=== PATIENT | female | born 1935 | race Hispanic/Latino ===

== ENCOUNTER 2017-12-21 11:37 | Inpatient (IN) | payer OTHER ==
[~2017-12-21] VITALS: Ht 144.8 cm; Wt 56.3 kg
[~2017-12-21 11:37] MED LIST: ACETAMINOPHEN/COD; DILANTIN 100MG100 MG PO; HYDROCODONE PO; RISPERIDONE PO; Z NORTRIPTYLINE PO; Z.0.LEVOTHYROXINE50 PO; Z.0.LORAZEPAM1 MG PO; Z.0.OMEPRAZOLE40 MG PO; Z.0.SERTRALINE HCL10 PO; Z.2.FERROUS SULFAT32 PO; [UNRECOGNIZED DRUG - OTHER] PO
[2017-12-21] MEDS ORDERED: SODIUM CHLORIDE 0.9% 1000ML 1,000 ML IV STA (11:41)
[2017-12-21 12:46] LABS: BASOPHILS % 0.6 % (0.0-1.0); EOSINOPHILS # (AUTO) 0.2 (0.0-0.4); HEMATOCRIT 41.9 % (34.2-44.1); HEMOGLOBIN 13.8 g/dL (12.0-16.0); LYMPHOCYTES # (AUTO) 1.4 (1.0-3.2); LYMPHOCYTES % 19.8 % (18.0-39.1); MEAN CORPUSCULAR HEMOGLOBIN 31.7 pg (28-32); MEAN CORPUSCULAR HGB CONC 32.9 g/dL (31-35); MEAN CORPUSCULAR VOLUME 96.1 fL (81-99); MONOCYTES # (AUTO) 1.2 (0.2-0.8); MONOCYTES % 16.2 % (4.4-11.3); NEUTROPHILS # (AUTO) 4.4 (2.1-6.9); NEUTROPHILS % 60.1 % (38.7-80.0); PLATELET COUNT 148 x10e3/uL (140-360); RED BLOOD COUNT 4.36 x10e6/uL (3.6-5.1); RED CELL DISTRIBUTION WIDTH 12.6 % (11.7-14.4)
[2017-12-21 13:00] LABS: ALANINE AMINOTRANSFERASE 12 IU/L (0-55); ALBUMIN 3.4 g/dL (3.5-5.0); ALKALINE PHOSPHATASE 92 IU/L (40-150); ANION GAP 16.4 mmol/L (8-16); BLOOD UREA NITROGEN 10 mg/dL (7-26); BUN/CREATININE RATIO 13 (6-25); CALCIUM 8.2 mg/dL (8.4-10.2); CARBON DIOXIDE 24 mmol/L (22-29); CHLORIDE 102 mmol/L (98-107); CREATININE, SERUM 0.79 mg/dL (0.57-1.11); EST GLOMERULAR FILTRATION RATE > 60 ML/MIN (60-); GLUCOSE 93 mg/dL (74-118); POTASSIUM 3.4 mmol/L (3.5-5.1); SODIUM 139 mmol/L (136-145)
[2017-12-21] MEDS ORDERED: ONDANSETRON HCL INJ 2 MG/ML VIAL IV STA (13:46)
[2017-12-21] MEDS ORDERED: MORPHINE SULFATE 2 MG/ML SYR IV STA (13:46)
--- NOTE | 2017-12-21 13:46 | Diagnostic Imaging Report ---
ADDENDUM #1 CT of the pelvis was obtained WITHOUT contrast. TECHNIQUE: Standard departmental protocols were used. Sagittal and coronal reformations were obtained. Dose modulation, iterative reconstruction, and/or weight based adjustment of the mA/kV was utilized to reduce the radiation dose to as low as reasonably achievable. DLP = 1573.45 mGy-cm HISTORY: Pain, status post fall, rule out fracture, left hip/femur COMPARISON: None available FINDINGS: Bones: Diffusely decreased mineralization of the osseous structures limits bone detail. Mildly impacted subcapital left femoral neck fracture. Joints and discs: Multifocal degenerative changes, most notably moderate to severe at L5-S1. Soft tissues: There is no evidence of lymphadenopathy or other soft tissue mass. Moderate colonic fecal burden. IMPRESSION: 1. Acute impacted left femoral neck subcapital fracture. 2. Diffuse osseous demineralization, recommend correlation with nonemergent bone densitometry. Discussed with [employer]INO ATTENDANT Short via phone on December 21, 2017 at 1340. Signed by: Dr. Que Kaminski D.O., M.M.M. on 01/07/2018 4:[address] of the pelvis was obtained WITHOUT contrast. TECHNIQUE: Standard departmental protocols were used. Sagittal and coronal reformations were obtained. HISTORY: Pain, status post fall, rule out fracture, left hip/femur COMPARISON: None available FINDINGS: Bones: Diffusely decreased mineralization of the osseous structures limits bone detail. Mildly impacted subcapital left femoral neck fracture. Joints and discs: Multifocal degenerative changes, most notably moderate to severe at L5-S1. Soft tissues: There is no evidence of lymphadenopathy or other soft tissue mass. Moderate colonic fecal burden. IMPRESSION: 1. Acute impacted left femoral neck subcapital fracture. 2. Diffuse osseous demineralization, recommend correlation with nonemergent bone densitometry. Discussed with CASINO ATTENDANT Short via phone on December 21, 2017 at 1340. Signed by: Dr. Que Kaminski D.O., M.M.M. on 12/21/2017 1:43 PM
--- NOTE | 2017-12-21 13:51 | Diagnostic Imaging Report ---
EXAMINATION: Head CT HISTORY: Status post fall, trauma, head pain COMPARISON: Head CT on 12/17/2008 TECHNIQUE: Multidetector axial images were obtained without contrast from the foramen magnum to the vertex . The images were reconstructed using brain and bone algorithms. Thin section brain images were reformatted into coronal and sagittal planes. Image quality: Motion/streaking artifact limits the evaluation of the skull base and posterior cranial fossa. Dose modulation, iterative reconstruction, and/or weight based adjustment of the mA/kV was utilized to reduce the radiation dose to as low as reasonably achievable. FINDINGS: Parenchyma: 1. 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 Small focus of encephalomalacia in the left occipital lobe. 2. Encephalomalacia in the right parietal lobe with compensatory dilatation of the right lateral ventricle and with surgical clips that appear to be in the parenchyma as well as the dura. No acute abnormality. 3. No mass or hemorrhage. No CT evidence of acute territorial vascular insult. Extra-axial spaces:No abnormal density. No extra-axial fluid collections Brain volume: Normal for age. Ventricles: Stable ventriculomegaly, no hydrocephalus. Arteries: No density suggestive of thrombus. Dural sinuses: No abnormal density. Extra-axial spaces: No abnormal density. Foramen magnum: No mass, Chiari malformation, or basilar invagination. Sella: No obvious mass. Paranasal/mastoid sinuses: Mild mucosal inflammatory thickening of the partially visualized ethmoidal and sphenoid sinuses. Skull/Scalp: Right parietal craniotomy defect is unchanged. Diffuse heterogeneous bone marrow density is again noted. IMPRESSION: 1. No acute post traumatic intracranial abnormalities, particularly no evidence of hemorrhage, streak artifact in the right parietal region limits the evaluation at this level. 2. Unchanged extensive bilateral areas of encephalomalacia when compared to head CT from 12/17/2008. Signed by: Dr. Nina English M.D. on 12/21/2017 1:47 PM
--- NOTE | 2017-12-21 14:05 | Diagnostic Imaging Report ---
LEFT FEMUR - 4 VIEWS HISTORY: Fall, pain COMPARISON: CT of the pelvis December 21, 2017 FINDINGS: Bones: Mildly impacted left femoral neck subcapital fracture. Joints: Unremarkable Soft tissues: Some of the osseous structures are partially obscured by stool and overlying bowel gas. IMPRESSION: Mildly impacted left femoral neck acute subcapital fracture. Signed by: Dr. Que Kaminski D.O., M.M.M. on 12/21/2017 2:01 PM
[2017-12-21 14:17] LABS: CREATINE KINASE MB 1.4 ng/mL (0-5.0)
--- NOTE | 2017-12-21 14:25 | Diagnostic Imaging Report ---
EXAM: XR CHEST 1 VIEW DATE: 12/21/2017 11:41 AM INDICATION: fall/fx COMPARISON: None FINDINGS: Lines and Tubes: None Heart and Mediastinum: The heart is not enlarged. There is left hilar fullness, nodular in appearance. Lungs and Pleura: Ill-defined opacity left lung base. Bones and Soft Tissues: Advanced degenerative changes shoulders. IMPRESSION: 1. Ill-defined opacity left lung base statistically atelectasis. Infectious process not excluded. 2. Left hilar fullness. Follow-up 2 view chest x-ray with deep inspiration after resolution of acute symptoms. If persist, CT chest with contrast be recommended. Signed by: Dr. Darrell Landers MD on 12/21/2017 2:22 PM
[2017-12-21 14:29] LABS: BILIRUBIN,URINE NEGATIVE (NEGATIVE); CLARITY,URINE SL CLOUDY (CLEAR); COLOR,URINE YELLOW (YELLOW); KETONES,URINE NEGATIVE (NEGATIVE); LEUKOCYTE ESTERASE ,URINE NEGATIVE (NEGATIVE); NITRITE,URINE NEGATIVE (NEGATIVE); PROTEIN,URINE DIPSTICK NEGATIVE (NEGATIVE); URINE UROBILINOGEN 0.2 mg/dL (0.2 - 1)
[2017-12-21 14:42] LABS: BACTERIA,URINE FEW /HPF; EPITHELIAL CELLS,URINE FEW /LPF
--- OUTSIDE RECORDS SUMMARY | 2017-12-21 15:05 | XMS REPORT ---
Author Organization Unknown Address [address] [place] [address] Phone [phone] Care Team Providers Care Access Developer Name Role Phone Boo[employer] Unavailable Unavailable Allergies Code Code System Name Reaction Severity Status Onset Iodine Active 07/13/2015 [id number] RxNorm Donepezil Confusion Active Other Active Vomiting Active Medications Name Status Start Date Stop Date amoxicillin 500 mg capsule Completed 12/31/2015 amoxicillin 875 mg-potassium clavulanate 125 mg tablet Completed 12/31/2015 Aspir-Low 81 mg tablet,delayed release TAKE 1 TABLET BY MOUTH EVERY DAY Active Not available aspirin 81 mg chewable tablet Chew 1 tablet every day by oral route for 90 days. Active Not available carbidopa 25 mg-levodopa 100 mg tablet Completed 12/31/2015 carbidopa 25 mg-levodopa 250 mg tablet Completed 04/24/2017 citalopram 20 mg tablet Completed 12/31/2015 donepezil 5 mg tablet Completed 04/24/2017 gabapentin 100 mg capsule Active Not available levothyroxine 50 mcg tablet Active Not available lorazepam 1 mg tablet Take 1 tablet every day by oral route as directed. Completed 12/31/2015 lorazepam 2 mg tablet Take 1 tablet 3 times a day by oral route as needed for 30 days. Active Not available meloxicam 7.5 mg tablet Completed 12/31/2015 paroxetine 20 mg tablet Completed 12/31/2015 phenytoin sodium extended 100 mg capsule Completed 06/26/2016 06/26/2016 risperidone 0.5 mg tablet TAKE 1-2 TABLETS THREE TIMES A DAY Active Not available sertraline 100 mg tablet Completed 12/31/2015 topiramate 25 mg tablet Completed 12/19/2016 trazodone 100 mg tablet Completed 03/06/2016 venlafaxine ER 150 mg capsule,extended release 24 hr take 1 tablet once a day in the AM Active Not available venlafaxine ER 75 mg capsule,extended release 24 hr Take 1 capsule twice a day by oral route. Completed 01/10/2017 04/24/2017 Problems Name Status Onset Date Source Hypothyroidism Active 11/09/2014 History Pure Hypercholesterolemia Active 11/09/2014 History Generalized Anxiety Disorder Active 11/09/2014 History Epileptic Seizure Unknown 11/09/2014 History Hereditary and Idiopathic Peripheral Neuropathy Active 11/09/2014 History History of Malignant Neoplasm of Colon Active 11/09/2014 History Long-term Current Use of Drug Therapy Active 11/09/2014 History Severe Recurrent Major Depression without Psychotic Features Unknown 12/18/2014 History Parkinson's Disease Active 06/18/2015 History Alzheimer's Disease Active 03/06/2016 Severe Recurrent Major Depression with Psychotic Features Active 03/31/2016 Benzodiazepine Dependence Active 12/19/2016 Chronic Post-traumatic Headache Active 12/19/2016 Post-traumatic Epilepsy Active 12/19/2016 Immunization Active 12/19/2016 Procedures Date Name Performed by 09/26/2016 [facility] (Prepmatic Imaging) [address] [place] [address] (Work Place) Notes: 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) and subsequent seizure disorder; Surgery Date: 1987 Cataract Phacotomy and IOL; Surgery Date: 2004 Hemicolectomy 2* to colon Ca; Surgery Date: 2012 Lab Results Date Name Specimen Result Interpretation Description Value Range Status Address 09/26/2016 TSH, Serum or Plasma Normal Tsh 0.79 mIU/L 0.40-4.50 mIU/L Final [facility]: [address] [address], [place] 09/26/2016 T4, Free, Serum Normal T4, Free 1.3 NG/dL 0.8-1.8 NG/dL Final [facility]: [address] [address], [place] 09/26/2016 Lipid Panel, Serum Normal Cholesterol, Total 142 mg/dL <200 mg/dL Final [facility]: [address] Low HDL Cholesterol 49 mg/dL >50 mg/dL Final [facility]: [address] Normal Triglycerides 118 mg/dL <150 mg/dL Final [facility]: [address] Normal LDL-cholesterol 73 mg/dL (calc) Final [facility]: [address] Normal Chol/hdlc Ratio 2.9 (calc) <5.0 (calc) Final [facility]: [address] Normal Non HDL Cholesterol 93 mg/dL (calc) <130 mg/dL (calc) Final [facility] [address] [facility] CMP, Serum or Plasma Normal Glucose 86 mg/dL 65-99 mg/dL Final [facility]: [address] Normal Urea Nitrogen (BUN) 10 mg/dL 7-25 mg/dL Final [facility]: [address] High Creatinine 1.19 mg/dL 0.60-0.88 mg/dL Final [facility]: [address] Low eGFR Non-afr. Romanian 42 mL/min/1.73m2 > or=60 mL/min/1.73m2 Final [facility]: [address] Low eGFR 49 mL/min/1.73m2 > or=60 mL/min/1.73m2 Final [facility]: [address] Normal BUN/creatinine Ratio 8 (calc) 6-22 (calc) Final [facility]: [address] Normal Sodium 141 mmol/L 135-146 mmol/L Final [facility]: [address] Normal Potassium 3.9 mmol/L 3.5-5.3 mmol/L Final [facility]: [address] Normal Chloride 109 mmol/L 98-110 mmol/L Final [facility]: [address] Normal Carbon Dioxide 23 mmol/L 20-31 mmol/L Final [facility]: [address] Normal Calcium 9.0 mg/dL 8.6-10.4 mg/dL Final [facility]: [address] Normal Protein, Total 6.5 g/dL 6.1-8.1 g/dL Final [facility]: [address] Normal Albumin 3.7 g/dL 3.6-5.1 g/dL Final [facility]: [address] Normal Globulin 2.8 g/dL (calc) 1.9-3.7 g/dL (calc) Final [facility]: [address] Normal Albumin/globulin Ratio 1.3 (calc) 1.0-2.5 (calc) Final [facility]: [address] Normal Bilirubin, Total 0.4 mg/dL 0.2-1.2 mg/dL Final [facility]: [address] [address], [place] Normal Alkaline Phosphatase 101 U/L 33-130 U/L Final [facility]: [address] Normal Ast 20 U/L 10-35 U/L Final [facility]: [address] [address], [place] Normal Alt 8 U/L 6-29 U/L Final [facility]: [address] Lipid Panel, Serum Normal Cholesterol, Total 152 mg/dL 125-200 mg/dL Final [facility]: [address], [place] Normal HDL Cholesterol 47 mg/dL > or=46 mg/dL Final [facility]: [address], [place] Normal Triglycerides 96 mg/dL <150 mg/dL Final [facility]: [address], [place] Normal LDL-cholesterol 86 mg/dL (calc) <130 mg/dL (calc) Final [facility]: [address], [place] Normal Chol/hdlc Ratio 3.2 (calc) < or=5.0 (calc) Final [facility]: [address], [place] Normal Non HDL Cholesterol 105 mg/dL (calc) Final [facility]: [address], [place] CMP, Serum or Plasma High Glucose 106 mg/dL 65-99 mg/dL Final [facility]: [address], [place] Normal Urea Nitrogen (BUN) 10 mg/dL 7-25 mg/dL Final [facility]: [address], [place] High Creatinine 0.99 mg/dL 0.60-0.88 mg/dL Final [facility]: [address], [place] Low eGFR Non-afr. Romanian 53 mL/min/1.73m2 > or=60 mL/min/1.73m2 Final [facility]: [address], [place] Normal eGFR 62 mL/min/1.73m2 > or=60 mL/min/1.73m2 Final [facility]: [address], [place] Normal BUN/creatinine Ratio 10 (calc) 6-22 (calc) Final [facility]: [address], [place] Normal Sodium 142 mmol/L 135-146 mmol/L Final [facility]: [address], [place] Normal Potassium 3.6 mmol/L 3.5-5.3 mmol/L Final [facility]: [address] [facility], [place] Normal Chloride 106 mmol/L 98-110 mmol/L Final [facility]: [address], [place] Normal Carbon Dioxide 25 mmol/L 20-31 mmol/L Final [facility]: [address], [place] Normal Calcium 9.3 mg/dL 8.6-10.4 mg/dL Final [facility]: [address], [place] Normal Protein, Total 6.6 g/dL 6.1-8.1 g/dL Final [facility]: [address], [place] Normal Albumin 3.8 g/dL 3.6-5.1 g/dL Final [facility]: [address], [place] Normal Globulin 2.8 g/dL (calc) 1.9-3.7 g/dL (calc) Final [facility]: [address], [place] Normal Albumin/globulin Ratio 1.4 (calc) 1.0-2.5 (calc) Final [facility]: [address] [facility], [place] Normal Bilirubin, Total 0.4 mg/dL 0.2-1.2 mg/dL Final [facility]: [address], [place] Normal Alkaline Phosphatase 101 U/L 33-130 U/L Final [facility]: [address], [place] Normal Ast 15 U/L 10-35 U/L Final [facility]: [address], [place] Normal Alt 6 U/L 6-29 U/L Final [facility]: [address], [place] CBC W/ Auto Diff Normal White Blood Cell Count 5.9 thousand/uL 3.8- 10.8 thousand/uL Final [facility] Lab: [address], [place] Normal Red Blood Cell Count 4.27 million/uL 3.80-5.10 million/uL Final [facility] Lab: [address], [place] Normal Hemoglobin 13.3 g/dL 11.7-15.5 g/dL Final [facility]: [address] [facility], [place] Normal Hematocrit 40.0 % 35.0-45.0 % Final [facility] Lab: [address] [facility], [place] Normal Mcv 93.6 fL 80.0-100.0 fL Final [facility]: [address] [facility], [place] Normal Mch 31.2 pg 27.0-33.0 pg Final [facility]: [address] [facility], [place] Normal Mchc 33.4 g/dL 32.0-36.0 g/dL Final [facility]: [address] [facility], [place] Normal Rdw 14.4 % 11.0-15.0 % Final [facility]: [address] [facility], [place] Normal Platelet Count 164 thousand/uL 140-400 thousand/uL Final [facility] Lab: [address] [facility], [place] Normal Mpv 10.3 fL 7.5-12.5 fL Final [facility] Lab: [address] [facility], [place] Normal Absolute Neutrophils 3540 cells/uL 7664-9821 cells/uL Final [facility] Lab: [address] [facility], [place] Normal Absolute Lymphocytes 1451 cells/uL 850-3900 cells/uL Final [facility] Lab: [address] [facility], [place] Normal Absolute Monocytes 561 cells/uL 200-950 cells/uL Final [facility] Lab: [address], [place] Normal Absolute Eosinophils 277 cells/uL 15-500 cells/uL Final [facility]: [address] [facility], [place] Normal Absolute Basophils 71 cells/uL 0-200 cells/uL Final [facility] Lab: [address], [place] Normal Neutrophils 60.0 % Final [facility] Lab: [address], [place] Normal Lymphocytes 24.6 % Final [facility] Lab: [address], [place] Normal Monocytes 9.5 % Final [facility] Lab: [address], [place] Normal Eosinophils 4.7 % Final [facility] Lab: [address], [place] Normal Basophils 1.2 % Final [facility] Lab: [address], [place] T4, Total, Serum Normal T4 (Thyroxine), Total 9.1 mcg/dL 4.5-12.0 mcg/dL Final [facility] Lab: [address], [place] TSH, Serum or Plasma Normal Tsh 0.78 mIU/L 0.40-4.50 mIU/L Final [facility] Lab: [address], [place] Past Encounters 04/24/2017 Alzheimer's Disease; Generalized Anxiety Disorder; Hereditary and Idiopathic Peripheral Neuropathy; Chronic Post-traumatic Headache; Parkinson's Disease; Post-traumatic Epilepsy; Benzodiazepine Dependence; Moderate Recurrent Major Depression; Restlessness and Agitation Israel Haddad MD: [id number] [facility], [address] [address], Ph. 03/19/2017 Page Adam: 9055 [facility], [address] [address], Ph. 02/13/2017 Page Adam: 9055 [facility], [facility] [address] [address], Ph. 01/10/2017 Alzheimer's Disease; Generalized Anxiety Disorder; Restlessness and Agitation; Parkinson's Disease; Post-traumatic Epilepsy; Benzodiazepine Dependence Israel Haddad MD: [id number] [facility], [facility] [address], [place] [address], Ph. 12/19/2016 Chronic Post-traumatic Headache; Parkinson's Disease; Alzheimer's Disease; Generalized Anxiety Disorder; Post-traumatic Epilepsy; Immunization; Hypothyroidism; Benzodiazepine Dependence Israel Haddad MD: [id number] [facility], [facility] [address] [address], Ph. 11/14/2016 Dennise Reed: 9055 [facility], [facility] [address], [place] [address], Ph. 09/27/2016 Dennise Reed: 9055 [facility], [facility] [address], [place] [address], Ph. 09/26/2016 Generalized Anxiety Disorder; Pure Hypercholesterolemia; Hypothyroidism; Screening for Osteoporosis; Neuropathy; Severe Recurrent Major Depression with Psychotic Features; Refractory Migraine with Aura Mai Juan PA: [id number] [facility], [address] [address], Ph. 08/25/2016 Generalized Anxiety Disorder; Severe Recurrent Major Depression with Psychotic Features; Refractory Migraine with Aura; Hypothyroidism Richard Cornell MD: [id number] [facility], [address] [address], Ph. 06/26/2016 Hypothyroidism; Generalized Anxiety Disorder; Severe Recurrent Major Depression with Psychotic Features; Neuropathy; Refractory Migraine with Aura; Epileptic Seizure; Dry Eyes Mai Juan PA: [id number] [facility], [address] [address], Ph. 04/06/2016 Israel Haddad MD: [id number] [facility], [address] [address], Ph. 03/31/2016 Adult Health Examination; Body Mass Index 20-24 - Normal; Parkinson's Disease; Severe Recurrent Major Depression with Psychotic Features; Neuropathy; Hypothyroidism; Generalized Anxiety Disorder; Refractory Migraine with Aura; Pure Hypercholesterolemia; Advance Directive Discussed with Patient; At Risk for Falls; Alzheimer's Disease; History of Malignant Neoplasm of Colon ALMA Carter: [id number] [facility], [address] [address], Ph. 03/06/2016 Generalized Anxiety Disorder; Refractory Migraine with Aura; Severe Recurrent Major Depression with Psychotic Features; Alzheimer's Disease; Constipation; Immunization ALMA Carter: [id number] [facility], [facility] [address] [address], Ph. 12/31/2015 Hypothyroidism; Generalized Anxiety Disorder; Refractory Migraine with Aura; Severe Recurrent Major Depression with Psychotic Features; Neuropathy Richard Cornell MD: [id number] [facility], [address], [place] [address], Ph. Social History Smoking Status Never Smoker Vaccine List Vaccine Type influenza, high dose seasonal 12/19/20160.5 mL influenza, injectable, quadrivalent 11/09/2014 influenza, injectable, quadrivalent, preservative free 03/06/20160.5 mL pneumococcal conjugate PCV 13 12/19/20160.5 mL pneumococcal polysaccharide PPV23 06/19/2007 Td (adult) 12/05/2008 Plan of Care Patient Instructions It was good to see you in the office today for your Medicare Annual Wellness Visit. You have been provided some information on healthy nutrition, including a diet rich in fruits and vegetables, minimizing simple carbohydrates, salt, and saturated fats. I want to encourage regular cardiovascular exercise such as walking at least 30 minutes daily, 5 times per week. Please remember to schedule any preventive health measures that we talked about today. You have also been provided education on fall prevention and community- based lifestyle interventions to help reduce health risks and promote healthy living in your [employer] folder. Reminders Provider Appointments None recorded. Lab None recorded. Referral None recorded. Procedures None recorded. Surgeries None recorded. Imaging None recorded. Vitals 04/24/2017 04:15PM Est Patient Height Weight BMI Blood Pressure 4 ft 9 in 98.8 lbs 21.4 kg/m2 118/73 mm[Hg] 01/10/2017 02:45PM Est Patient Height Weight BMI Blood Pressure 4 ft 9 in 99 lbs 21.4 kg/m2 149/82 mm[Hg] 12/19/2016 03:30PM Est Patient Height Weight BMI Blood Pressure 4 ft 9 in 99 lbs 21.4 kg/m2 141/88 mm[Hg] 09/26/2016 02:15PM Est Patient Height Weight BMI Blood Pressure 4 ft 9 in 100 lbs 21.6 kg/m2 116/76 mm[Hg] 08/25/2016 11:15AM Est Patient Height Weight BMI Blood Pressure 4 ft 9 in 99 lbs 21.4 kg/m2 124/79 mm[Hg] 06/26/2016 02:45PM Est Patient Height Weight BMI Blood Pressure 4 ft 9 in 99.2 lbs 21.5 kg/m2 114/73 mm[Hg] 03/31/2016 02:00PM SAW OFFBEARER/EST CPX Height Weight BMI Blood Pressure 4 ft 9 in 100.4 lbs 21.7 kg/m2 132/83 mm[Hg] 03/06/2016 11:15AM Est Patient Height Weight BMI Blood Pressure 4 ft 9 in 103 lbs 22.3 kg/m2 133/81 mm[Hg] 12/31/2015 11:30AM Est Patient Height Weight BMI Blood Pressure 4 ft 9 in 108 lbs 23.4 kg/m2 151/80 mm[Hg] 07/13/2015 Height Weight BMI Blood Pressure 4 ft 9 in 116 lbs 25.10 kg/m2 122/68 mm[Hg] 06/18/2015 Height Weight BMI Blood Pressure 4 ft 9 in 116 lbs 25.10 kg/m2 120/68 mm[Hg] 05/07/2015 Height Weight BMI Blood Pressure 4 ft 9 in 116.4 lbs 25.19 kg/m2 112/64 mm[Hg] 03/24/2015 Height Weight BMI Blood Pressure 4 ft 9 in 119.4 lbs 25.84 kg/m2 100/66 mm[Hg] 03/01/2015 Height Weight BMI Blood Pressure 4 ft 9 in 122.4 lbs 26.48 kg/m2 110/74 mm[Hg] 12/18/2014 Height BMI 4 ft 9 in 25.14 kg/m2 12/18/2014 Weight Blood Pressure 116.2 lbs 118/70 mm[Hg] 11/09/2014 Height Weight BMI Blood Pressure 4 ft 9 in 115.2 lbs 24.93 kg/m2 124/72 mm[Hg] 09/10/2014 Height Weight BMI Blood Pressure 4 ft 9 in 113 lbs 24.45 kg/m2 120/76 mm[Hg] 07/15/2014 Height Weight BMI Blood Pressure 4 ft 9 in 105.4 lbs 22.81 kg/m2 116/70 mm[Hg] 05/18/2014 Height Weight BMI Blood Pressure 4 ft 9 in 109.2 lbs 23.63 kg/m2 140/70 mm[Hg] 04/24/2014 Height Weight BMI Blood Pressure 4 ft 9 in 108.6 lbs 23.50 kg/m2 115/70 mm[Hg] 04/08/2014 Height Weight BMI Blood Pressure 4 ft 9 in 108.4 lbs 23.45 kg/m2 100/60 mm[Hg] 03/24/2014 Height Weight BMI Blood Pressure 4 ft 9 in 115.8 lbs 25.06 kg/m2 90/50 mm[Hg] 03/11/2014 Height Weight BMI Blood Pressure 4 ft 9 in 113.2 lbs 24.49 kg/m2 115/70 mm[Hg] 01/16/2014 Height Weight BMI Blood Pressure 4 ft 9 in 112 lbs 24.23 kg/m2 130/70 mm[Hg] 09/19/2013 Height Weight 4 ft 9 in 119.4 lbs 08/12/2013 Height Weight 4 ft 9 in 121.2 lbs 07/10/2013 Height Weight 4 ft 9 in 125 lbs 05/27/2013 Height Weight 4 ft 9 in 129 lbs 04/01/2013 Height Weight 4 ft 9 in 133 lbs 03/03/2013 Height Weight 4 ft 9 in 137.4 lbs 01/16/2013 Height Weight 4 ft 9 in 133.4 lbs 11/21/2012 Height Weight 4 ft 9 in 137.8 lbs 10/31/2012 Height Weight 4 ft 9 in 136.8 lbs 08/12/2012 Height Weight 4 ft 9 in 131.8 lbs 07/05/2012 Height Weight 4 ft 9 in 132 lbs 05/02/2012 Height Weight 4 ft 9 in 124.6 lbs 03/06/2012 Height Weight 4 ft 9 in 127 lbs 12/08/2011 Height Weight 4 ft 9 in 124 lbs 11/10/2011 Height Weight 4 ft 9 in 127.4 lbs 10/11/2011 Height Weight 4 ft 9 in 124.2 lbs 09/15/2011 Height Weight 4 ft 9 in 128.8 lbs 08/23/2011 Height Weight 4 ft 9 in 127 lbs 08/16/2011 Height Weight 4 ft 9 in 128.6 lbs 07/19/2011 Height Weight 4 ft 9 in 133 lbs 06/30/2011 Height Weight 4 ft 9 in 133.4 lbs 05/25/2011 Height Weight 4 ft 9 in 132.6 lbs 05/19/2011 Height Weight 4 ft 9 in 133 lbs 05/16/2011 Height Weight 4 ft 9 in 136.2 lbs 05/10/2011 Height Weight 4 ft 9 in 136 lbs 04/10/2011 Height Weight 4 ft 9 in 134.8 lbs 03/15/2011 Height Weight 4 ft 9 in 57 lbs 02/02/2011 Height Weight 4 ft 9 in 145 lbs 02/01/2011 Height Weight 4 ft 9 in 145 lbs 01/27/2011 Height Weight 4 ft 9 in 145 lbs 01/24/2011 Height Weight 4 ft 9 in 144 lbs 01/16/2011 Weight 144.2 lbs 01/16/2011 Height 4 ft 9 in 12/09/2010 Height Weight 4 ft 9 in 148.2 lbs 11/11/2010 Height Weight 4 ft 9 in 145.6 lbs 10/12/2010 Height Weight 4 ft 9 in 140.6 lbs 09/16/2010 Height Weight 4 ft 9 in 142.6 lbs 08/18/2010 Height Weight 4 ft 9 in 138.8 lbs 07/25/2010 Height Weight 4 ft 9 in 139.4 lbs 06/24/2010 Height Weight 4 ft 9 in 61.1 lbs 05/25/2010 Height Weight 4 ft 9 in 127 lbs 04/01/2010 Height Weight 4 ft 9 in 115.6 lbs 03/23/2010 Height Weight 4 ft 9 in 111 lbs 03/08/2010 Weight 111 lbs 02/17/2010 Height Weight 4 ft 9 in 111.6 lbs 02/02/2010 Height Weight 4 ft 9 in 109.8 lbs 01/21/2010 Height Weight 4 ft 9 in 110.4 lbs 12/28/2009 Weight 108.2 lbs 12/14/2009 Height Weight 4 ft 9 in 114.6 lbs 12/01/2009 Height Weight 4 ft 9 in 111 lbs 11/10/2009 Weight 108.8 lbs 10/20/2009 Height Weight 4 ft 9 in 110.4 lbs 09/24/2009 Height Weight 4 ft 9 in 106.2 lbs 09/07/2009 Weight 106.2 lbs 08/18/2009 Height Weight 4 ft 9 in 108.4 lbs 06/17/2009 Weight 109 lbs 05/17/2009 Weight 112.2 lbs 02/15/2009 Weight 121 lbs 01/13/2009 Weight 124 lbs 11/10/2008 Weight 124 lbs 09/21/2008 Weight 130 lbs 08/25/2008 Weight 136 lbs 08/17/2008 Weight 141 lbs 08/07/2008 Weight 145 lbs 07/28/2008 Height Weight 4 ft 9 in 145 lbs 07/02/2008 Weight 146 lbs 06/15/2008 Height Weight 4 ft 9 in 150 lbs 06/05/2008 Height Weight 4 ft 9 in 155 lbs 05/28/2008 Weight 153 lbs 05/19/2008 Height Weight 4 ft 9 in 151 lbs 05/05/2008 Height Weight 4 ft 10 in 153 lbs 02/28/2008 Weight 149.5 lbs 12/05/2007 Weight 151.9 lbs 10/04/2007 Weight 154.7 lbs 09/16/2007 Weight 156.8 lbs 09/02/2007 Height Weight 4 ft 10 in 156.4 lbs 07/10/2007 Weight 155 lbs 06/19/2007 Weight 157 lbs 03/18/2007 Height Weight 4 ft 9 in 15.9 lbs
--- OUTSIDE RECORDS SUMMARY | 2017-12-21 15:05 | XMS REPORT ---
[facility] Address Unknown Phone Unavailable Care Team Providers Care Mill Operator Head Name Role Phone DWIGHTAga TAYLOR Unavailable Unavailable Problems This patient has no known problems. Allergies, Adverse Reactions, Alerts This patient has no known allergies or adverse reactions. Medications This patient has no known medications. Results Test Description Test Time Test Comments Text Results Atomic Results Result Comments CHEST SINGLE (PORTABLE) 2017-12-21 14:20:00 [place] [address] Patient Name: ZENY COREA I MR #: [id number] : 1935 Age/Sex: 82/F Req #: [id number] Adm Physician: Ordered by: DEEJAY CARTER HEATER TENDER Report #: [id number] Location: ER Room/Bed: Procedure: [id number] DX/CHEST SINGLE (PORTABLE) Exam Date: 12/21/17 Exam Time: 1340 REPORT STATUS: Signed EXAM: XR CHEST 1 VIEW DATE: 12/21/2017 11:41 AM INDICATION: fall/fx COMPARISON: None FINDINGS: Lines and Tubes: None Heart and Mediastinum: The heart is not enlarged. There is left hilar fullness, nodular in appearance. Lungs and Pleura: Ill-defined opacity left lung base. Bones and Soft Tissues: Advanced degenerative changes shoulders. IMPRESSION: 1. Ill-defined opacity left lung base statistically atelectasis. Infectious process not excluded. 2. Left hilar fullness. Follow-up 2 view chest x-ray with deep inspiration after resolution of acute symptoms. If persist, CT chest with contrast be recommended. Signed by: Dr. Darrell Landers MD on 12/21/2017 2:22 PM Dictated By: DARRELL LANDERS MD 21 Transcribed By: MIYA on 12/21/171421 COPY TO: DEEJAY CARTER HEATER TENDER FEMUR 2 VIEWS MINIMUM LEFT 2017-12-21 14:00:00 [place] [address] Patient Name: ZENY COREA I MR #: [id number] : 1935 Age/Sex: 82/F Req #: [id number] Adm Physician: Ordered by: DEEJAY CARTER HEATER TENDER Report #: [id number] Location: ER Room/Bed: Procedure: [id number] DX/FEMUR 2 VIEWS MINIMUM LEFT Exam Date: Exam Time: REPORT STATUS: Signed LEFT FEMUR - 4 VIEWS HISTORY: Fall, pain COM PARISON: CT of the pelvis December 21, 2017 FINDINGS: Bones: Mildly impacted left femoral neck subcapital fracture. Joints: Unremarkable Soft tissues: Some of the osseous structures are partially obscured by stool and overlying bowel gas. IMPRESSION: Mildly impacted left femoral neck acute subcapital fracture. Signed by: Dr. Que Kaminski D.O., M.M.M. on 12/21/2017 2:01 PM Dictated By: QUE KAMINSKI DO 00 Transcribed By: MIYA on 12/21/171400 COPY TO: DEEJAY CARTER HEATER TENDER CT BRAIN WO 2017-12-21 13:36:00 [facility] [address] [place] [address] Patient Name: ZENY COREA I MR #: [id number] : 1935 Age/Sex: 82/F Req #: [id number] Adm Physician: Ordered by: DEEJAY CARTER HEATER TENDER Report #: [id number] Location: ER Room/Bed: Procedure: [id number] CT/CT BRAIN WO Exam Date: 12/21/17 Exam Time: 1300 REPORT STATUS: Signed EXAMINATION: Head CT HISTORY: Status post fall, trauma, head pain COMPARISON: Head CT on 12/17/2008 TECHNIQUE: Multidetector axial images were obtained without contrast from the foramen magnum to the vertex . The images were reconstructed using brain and bone algorithms. Thin section brain images were reformatted into coronal and sagittal planes. Image quality: Motion/streaking artifact limits the evaluation of the skull base and posterior cranial fossa. Dose modulation, iterative reconstruction, and/or weight based adjustment of the mA/kV was utilized to reduce the radiation dose to as low as reasonably achievable. FINDINGS: Parenchyma: 1. 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 Small focus of encephalomalacia in the left occipital lobe. 2. Encephalomalacia in the right parietal lobe with compensatory dilatation of the right lateral ventricle and with surgical clips that appear to be in the parenchyma as well as the dura. No acute abnormality. 3. No mass or hemorrhage. No CT evidence of acute territorial vascular insult. Extra-axial spaces:No abnormal density. No extra-axial fluid collections Brain volume: Normal for age. Ventricles: Stable ventriculomegaly, no hydrocephalus. Arteries: No density suggestive of thrombus. Dural sinuses: No abnormal density. Extra-axial spaces: No abnormal density. Foramen magnum: No mass, Chiari malformation, or basilar invagination. Sella: No obvious mass. Paranasal/mastoid sinuses: Mild mucosal inflammatory thickening of the partially visualized ethmoidal and sphenoid sinuses. Skull/Scalp: Right parietal craniotomy defect is unchanged. Diffuse heterogene ous bone marrow density is again noted. IMPRESSION: 1. No acute post traumatic intracranial abnormalities, particularly no evidence of hemorrhage, streak artifact in the right parietal region limits the evaluation at this level. 2. Unchanged extensive bilateral areas of encephalomalacia when compared to head CT from 12/17/2008. Signed by: Dr. Brandon English M.D. on 12/21/2017 1:47 PM Dictated By: BRANDON ENGLISH MD 1347 Transcribed By: MIYA on 12/21/17 1347 COPY TO: DEEJAY CARTER HEATER TENDER CT PELVIS WO 2017-12-21 13:35:00 [place] [address] Patient Name: ZENY COREA I MR #: [id number] : 1935 Age/Sex: 82/F Req #: [id number] Adm Physician: Ordered by: DEEJAY CARTER HEATER TENDER Report #: [id number] Location: ER Room/Bed: Procedure: [id number] CT/CT PELVIS WO Exam Date: 12/21/17 Exam Time: 1300 REPORT STATUS: Signed CT of the pelvis was obtained WITHOUT contrast. TECHNIQUE : Standard departmental protocols were used. Sagittal and coronal reformations were obtained. HISTORY: Pain, status post fall, rule out fracture, left hip/femur COMPARISON: None available FINDINGS: Bones: Diffusely decreased mineralization of the osseous structures limits bone detail. Mildly impacted subcapital left femoral neck fracture. Joints and discs: Multifocal degenerative changes, most notably moderate to severe at L5- S1. Soft tissues: There is no evidence of lymphadenopathy or other soft tissue mass. Moderate colonic fecal burden. IMPRESSION: 1. Acute impacted left femoral neck subcapital fracture. 2. Diffuse osseous demineralization, recommend correlation with nonemergent bone densitometry. Discussed with ROSY Carter via phone on December 21, 2017 at 1340. Signed by: Dr. Que Kaminski D.O., M.M.M. on 12/21/2017 1:43 PM Dictated By: QUE KAMINSKI DO 6245 Tr anscribed By: MIYA on 12/21/17 1346 COPY TO: DEEJAY CARTER NP
[2017-12-21 15:41] LABS: INR 0.98; PROTHROMBIN TIME 13.9 seconds (11.9-14.5)
[2017-12-21 15:42] LABS: PARTIAL THROMBOPLASTIN TIME 31.3 seconds (23.8-35.5)
[2017-12-21 18:05] VITALS: BP 146/79
[2017-12-21 18:56] VITALS: BP 146/79
[2017-12-21] MEDS ORDERED: ASPIRIN81 MG PO (19:43)
[2017-12-21] MEDS ORDERED: RASAGILINE PO (19:43)
[2017-12-21] MEDS ORDERED: BENZONATATE100 MG PO (19:43)
[2017-12-21] MEDS ORDERED: AZITHROMYC200 MG/5 M PO (19:43)
[2017-12-21] MEDS ORDERED: GABAPENTIN100 MG PO (19:43)
[2017-12-21] MEDS ORDERED: VITAMIN D1000 UNI1 PO (19:43)
[2017-12-21] MEDS ORDERED: [UNRECOGNIZED DRUG - OTHER] PO (19:43)
[2017-12-21] MEDS: ONDANSETRON HCL INJ 2 MG/ML VIAL IV PRN (19:48)
[2017-12-21] MEDS: MORPHINE SULFATE 2 MG/ML SYR IV PRN (19:52)
[2017-12-21 20:00] VITALS: BP 148/77
[2017-12-21 20:30] VITALS: BP 148/77
[2017-12-22] VITALS (8 sets, daily range): BP systolic 113–141; BP diastolic 60–73
[2017-12-22] MEDS: ONDANSETRON HCL INJ 2 MG/ML VIAL IV PRN ×2 (06:05→10:10)
[2017-12-22] MEDS: MORPHINE SULFATE 2 MG/ML SYR IV PRN ×2 (06:08→10:10)
[2017-12-22] MEDS ORDERED: AZITHROMYCIN 500MG/NS 250 ML 250 ML IV ONE (11:15)
[2017-12-22] MEDS ORDERED: CEFTRIAXONE SOD 1 GM/NS 50 ML 50 ML IV SCH (11:15)
[2017-12-22] MEDS ORDERED: MAGNESIUM HYDROXIDE 30 ML UDC PO PRN (11:15)
[2017-12-22] MEDS ORDERED: BENZONATATE 100 MG CAP PO PRN (11:15)
--- NOTE | 2017-12-22 12:06 | History and Physical ---
PRIMARY CARE PHYSICIAN: Dr. Michoacano Haddad CONSULTANTS: Dr. Mk Bae CHIEF COMPLAINT: Status post fall with left femoral neck fracture. HISTORY: Patient is an 82-year-old female who came in with left femoral neck fracture. At baseline, the patient is stable. She has some tremor and she walked with a walker and apparently she fell. The patient is otherwise stable. Chest x-ray showed possible pneumonia. PAST MEDICAL HISTORY: Chronic tremor, osteoarthritis, dementia with behavioral disturbances, hypothyroidism, depression, and anxiety disorder. PAST SURGICAL HISTORY: Noncontributory. SOCIAL HISTORY: Patient does not smoke or use alcohol. No recreational drugs. ALLERGIES: IODINE. HOME MEDICATIONS: List reviewed. REVIEW OF SYSTEMS: Obtained from the patient's son. PHYSICAL EXAMINATION VITAL SIGNS: Temperature is 99, blood pressure 141/67, pulse rate 86, and respirations 18. GENERAL: Patient is not in acute distress. She is awake. HEENT: Normocephalic, atraumatic, anicteric. NECK: Supple grossly. PULMONARY: Diminished breath sounds bilaterally. CARDIOVASCULAR: S1 and S2. Regular rate and rhythm. ABDOMEN: Soft. EXTREMITIES: Left leg infection. No edema. NEUROLOGIC: No gross focal deficit. LABORATORY: Sodium is 139, potassium 3.4, chloride 102, bicarb 24, BUN 10, creatinine 0.8, glucose 93. WBC 7.3, hemoglobin 13.8, hematocrit 42, and platelets 148. IMPRESSION 1. Left femoral neck fractures, status post fall. 2. Multiple chronic baseline problem including dementia with behavioral disturbances, chronic tremor, possible Parkinson's, hypothyroidism, and depression and anxiety disorder. PLAN: To start the patient on azithromycin and Rocephin. Continue with home medication with adjustment. CT chest without contrast. Echocardiogram. We will prepare the patient for possible surgery for the left hip repair. Job#: [id number] AMANDA
--- NOTE | 2017-12-22 12:33 | Diagnostic Imaging Report ---
EXAMINATION: CT scan of the chest without contrast. TECHNIQUE: Helical CT images of the chest were performed from the lung apices to the level of the adrenal glands. No intravenous contrast was administered Coronal and sagittal reformatted images were obtained. Dose modulation, iterative reconstruction, and/or weight based adjustment of the mA/kV was utilized to reduce the radiation dose to as low as reasonably achievable. COMPARISON: None. CLINICAL HISTORY:Abdominal pain DISCUSSION: ABSENCE OF INTRAVENOUS CONTRAST DECREASES SENSITIVITY FOR DETECTION OF FOCAL LESIONS AND VASCULAR PATHOLOGY. LINES/TUBES: None. LUNGS AND AIRWAYS: Calcified granuloma in the lingula. Left lower lung atelectasis. Lower lobe bronchiectasis. The airways are normal, without endobronchial lesions. PLEURA: No pneumothorax or pleural effusions. HEART AND MEDIASTINUM: The thyroid gland is normal. Calcified mediastinal nodes. Heart size normal. LYMPH NODES: There is no mediastinal, hilar or axillary lymphadenopathy. ABDOMEN: Limited contrast-enhanced views of the upper abdomen show no abnormality within the visualized liver, spleen, pancreas, or kidneys. The adrenal glands are normal. BONES AND SOFT TISSUES: No acute bony abnormalities. IMPRESSION: Left lower lung atelectasis and bronchiectasis. Signed by: Dr. Madan Messer M.D. on 12/22/2017 12:29 PM
[2017-12-22] MEDS ORDERED: SODIUM CHLORIDE 0.9% 500ML 500 ML ONE (12:34)
[2017-12-22] MEDS: LEVOTHYROXINE SODIUM 50 MCG TAB PO SCH (12:39)
[2017-12-22] MEDS: LORAZEPAM 1 MG TAB PO PRN ×2 (12:39→21:01)
[2017-12-22] MEDS: CEFTRIAXONE SOD 1 GM/NS 50 ML 50 ML IV SCH (14:35)
[2017-12-22] MEDS: SENNOSIDES 8.6 MG TAB PO SCH (16:04)
[2017-12-22] MEDS: RISPERIDONE 0.5 MG TAB PO SCH ×2 (16:04→21:00)
[2017-12-22] MEDS: GABAPENTIN 100 MG CAP PO SCH (21:00)
[2017-12-23] VITALS (7 sets, daily range): BP systolic 105–141; BP diastolic 55–69
[2017-12-23] MEDS: LEVOTHYROXINE SODIUM 50 MCG TAB PO SCH (06:42)
[2017-12-23] MEDS: RISPERIDONE 0.5 MG TAB PO SCH ×3 (08:48→21:20)
[2017-12-23] MEDS: SENNOSIDES 8.6 MG TAB PO SCH ×2 (08:50→17:00)
[2017-12-23] MEDS: AZITHROMYCIN 250MG/NS 100 ML 100 ML IV SCH (08:56)
[2017-12-23] MEDS ORDERED: POTASSIUM CHLORIDE 10MEQ EA PO NR (09:30)
[2017-12-23] MEDS: MORPHINE SULFATE 2 MG/ML SYR IV PRN ×2 (13:56→17:58)
[2017-12-23] MEDS: CEFTRIAXONE SOD 1 GM/NS 50 ML 50 ML IV SCH (14:02)
[2017-12-23] MEDS: BALSAM PERU/CASTOR OIL 60 GM OINT...G. TP SCH (21:20)
[2017-12-23] MEDS: GABAPENTIN 100 MG CAP PO SCH (21:20)
[2017-12-24] VITALS: BP 108/56
[2017-12-24 04:00] VITALS: BP 126/67
[2017-12-24 05:23] LABS: BASOPHILS % 0.5 % (0.0-1.0); EOSINOPHILS # (AUTO) 0.4 (0.0-0.4); EOSINOPHILS % 6.1 % (0.0-6.0); HEMATOCRIT 35.8 % (34.2-44.1); HEMOGLOBIN 11.8 g/dL (12.0-16.0); LYMPHOCYTES # (AUTO) 1.4 (1.0-3.2); LYMPHOCYTES % 21.2 % (18.0-39.1); MEAN CORPUSCULAR HEMOGLOBIN 31.6 pg (28-32); MEAN CORPUSCULAR VOLUME 95.7 fL (81-99); MONOCYTES % 15.8 % (4.4-11.3); NEUTROPHILS # (AUTO) 3.7 (2.1-6.9); NEUTROPHILS % 56.1 % (38.7-80.0); PLATELET COUNT 175 x10e3/uL (140-360); RED BLOOD COUNT 3.74 x10e6/uL (3.6-5.1); RED CELL DISTRIBUTION WIDTH 12.4 % (11.7-14.4)
[2017-12-24 05:39] LABS: ANION GAP 14.9 mmol/L (8-16); BLOOD UREA NITROGEN 9 mg/dL (7-26); BUN/CREATININE RATIO 11 (6-25); CALCIUM 8.8 mg/dL (8.4-10.2); CARBON DIOXIDE 25 mmol/L (22-29); CHLORIDE 104 mmol/L (98-107); CREATININE, SERUM 0.79 mg/dL (0.57-1.11); EST GLOMERULAR FILTRATION RATE > 60 ML/MIN (60-); GLUCOSE 100 mg/dL (74-118); POTASSIUM 3.9 mmol/L (3.5-5.1); SODIUM 140 mmol/L (136-145)
[2017-12-24] MEDS: LEVOTHYROXINE SODIUM 50 MCG TAB PO SCH (05:43)
[2017-12-24] MEDS: HYDROCODONE/APAP 5MG-325MG TAB PO PRN (05:43)
[2017-12-24 07:31] LABS: EOSINOPHILS % (MANUAL) 4 % (0-7); LYMPHOCYTES % (MANUAL) 21 % (19-48); MONOCYTES % (MANUAL) 13 % (3.4-9.0); NEUTROPHILS % (MANUAL) 62 % (40-74)
[2017-12-24 07:32] LABS: ANISOCYTOSIS SLIGHT; PLATELET ESTIMATE ADEQUATE; PLATELET MORPHOLOGY COMMENT NORMAL; RBC MORPHOLOGY COMMENT NORMAL
[2017-12-24 07:46] VITALS: BP 130/66
[2017-12-24] MEDS: RISPERIDONE 0.5 MG TAB PO SCH ×3 (09:30→20:56)
[2017-12-24] MEDS: AZITHROMYCIN 250MG/NS 100 ML 100 ML IV SCH (09:30)
[2017-12-24] MEDS: SENNOSIDES 8.6 MG TAB PO SCH ×2 (09:30→17:00)
[2017-12-24] MEDS: BALSAM PERU/CASTOR OIL 60 GM OINT...G. TP SCH ×2 (10:00→17:00)
--- NOTE | 2017-12-24 10:55 | Consultation ---
DATE OF CONSULTATION: PULMONARY CONSULTATION REASON FOR CONSULT: Preop evaluation. CHIEF COMPLAINT: Patient fell and has left femoral neck fracture. HPI: An 82-year-old female came in left femoral neck fracture. She reported that she has been having cough for a few days. She denies any complaints of chest pain, nausea or vomiting. She has Parkinson disease. Her CT scan showed left lower lung area of bronchiectasis and maybe small area of atelectasis. She denies any chest pain, nausea or vomiting. REVIEW OF SYSTEMS GENERAL: Denies any fever, chills or weight loss. HEENT: Denies any head trauma. ENT: Denies any earache. CV: Denies any chest pain. RESPIRATORY: No shortness of breath. Just cough. The rest of the review systems are negative except as in HPI PAST MEDICAL HISTORY: Parkinson disease, dementia, hypothyroidism, depression, anxiety. PAST SURGICAL HISTORY: None. FAMILY/SOCIAL HISTORY: She has never smoked. PHYSICAL EXAMINATION VITALS: T-max of 100.5, pulse of 100, blood pressure 108/56, respiratory rate of 18, O2 sat 97%. HEENT: Head atraumatic and normocephalic. NECK: Supple. CHEST: Few crackles on the bases, but otherwise clear. HEART: S1 and S2 audible. ABDOMEN: Soft and nontender. EXTREMITIES: No pedal edema. NEUROLOGIC: Awake and alert. LABS: White count of 6000, hemoglobin 11.8, and platelets 175,000. Chemistries within normal limits. CT of the chest, I reviewed the images and is showing some focal area of bronchiectasis on the left lobe and then mild atelectasis. I do not see any pneumonia. ASSESSMENT AND PLAN: Ms. Duncan is an 82-year-old female. She has a left femoral neck fracture. PLAN: She is cleared from pulmonary standpoint. She is optimized from pulmonary standpoint to undergo surgery I will recommend continuing the Rocephin and azithromycin. I will add nebulizer treatment for her cough. She has focal bronchiectasis. Will need outpatient followup. Will continue to follow along with you. Thank you for this consult. Job#: [id number] GONZÁLEZ
[2017-12-24] MEDS: ALBUTEROL/IPRATROPIUM 3 ML NEB NEB SCH ×2 (11:35→19:33)
[2017-12-24 11:48] VITALS: BP 139/66
[2017-12-24] MEDS: MORPHINE SULFATE 2 MG/ML SYR IV PRN (12:20)
[2017-12-24] MEDS: LORAZEPAM 1 MG TAB PO PRN (14:34)
[2017-12-24] MEDS: CEFTRIAXONE SOD 1 GM/NS 50 ML 50 ML IV SCH (15:00)
[2017-12-24 16:09] VITALS: BP 129/67
[2017-12-24 20:00] VITALS: BP 165/74
[2017-12-24] MEDS: GABAPENTIN 100 MG CAP PO SCH (20:56)
[2017-12-25] VITALS: BP 146/71
[2017-12-25] MEDS: ALBUTEROL/IPRATROPIUM 3 ML NEB NEB SCH ×4 (01:10→19:25)
[2017-12-25 04:00] VITALS: BP 160/75
[2017-12-25] MEDS: LEVOTHYROXINE SODIUM 50 MCG TAB PO SCH (04:20)
[2017-12-25] MEDS ORDERED: BACITRACIN 50,000 UNIT VIAL ONE (05:50)
[2017-12-25] MEDS ORDERED: CEFAZOLIN SOD 2 GM in WATER STERILE 10ML VIAL 10 ML IV ONE (06:00)
[2017-12-25] MEDS ORDERED: CEFAZOLIN SOD 1 GM VIAL IV ONE (06:00)
[2017-12-25] MEDS ORDERED: ONDANSETRON HCL INJ 2 MG/ML VIAL IV PRN (08:15)
[2017-12-25] MEDS ORDERED: HYDROMORPHONE 0.2MG/ML-SOD CHL 30ML PCA SYRINGE IV PRN (08:15)
[2017-12-25] MEDS ORDERED: NALOXONE HCL INJ 0.4 MG/ML AMP IV PRN (08:15)
[2017-12-25] MEDS ORDERED: HYDROMORPHONE 0.2MG/ML-SOD CHL 30ML PCA SYRINGE IV ONE (08:32)
[2017-12-25] MEDS: SENNOSIDES 8.6 MG TAB PO SCH ×2 (09:00→14:29)
[2017-12-25] MEDS: BALSAM PERU/CASTOR OIL 60 GM OINT...G. TP SCH ×2 (09:00→17:37)
[2017-12-25] MEDS: RISPERIDONE 0.5 MG TAB PO SCH ×3 (09:00→21:59)
[2017-12-25] MEDS: SODIUM CHLORIDE 0.9% 1000ML 1,000 ML IV SCH ×4 (10:35→21:59)
[2017-12-25] MEDS: AZITHROMYCIN 250MG/NS 100 ML 100 ML IV SCH (10:35)
--- NOTE | 2017-12-25 10:40 | Diagnostic Imaging Report ---
PROCEDURE:HIP LEFT 2-3 VW (+/- PELVIS) INDICATION:Subcapital femoral head fracture. COMPARISON:[facility], DX, FEMUR 2 VIEWS MINIMUM LEFT, 12/21/2017 FINDINGS:Three screws have been placed through the femoral neck in good location. Joint space narrowing is present. The bones are osteopenic. CONCLUSION:Status post operative repair of a subcapital femoral neck fracture. Omar Beaulieu D.O. Dictated by: Omar Beaulieu D.O. on 12/25/2017 at 10:49 Electronically approved by: Omar Beaulieu D.O. on 12/25/2017 at 10:49
[2017-12-25 13:47] VITALS: BP 163/85
[2017-12-25] MEDS ORDERED: CEFAZOLIN SOD 1 GM/D5W 50ML 50 ML IV SCH (14:00)
[2017-12-25] MEDS ORDERED: CEFAZOLIN SOD 1 GM VIAL IV SCH (14:00)
[2017-12-25] MEDS: CEFTRIAXONE SOD 1 GM/NS 50 ML 50 ML IV SCH (14:29)
[2017-12-25] MEDS: ACETAMINOPHEN 325 MG TAB PO PRN ×2 (14:30→21:59)
[2017-12-25 17:00] VITALS: BP 132/84
[2017-12-25] MEDS ORDERED: DEXAMETHASONE SOD PHOS INJ 4 MG/ML VIAL ONE (19:18)
[2017-12-25] MEDS ORDERED: LIDOCAINE HCL 2% LOCAL INJ 5 ML SDV VIAL INJ ONE (19:18)
[2017-12-25] MEDS ORDERED: MIDAZOLAM HCL 2 MG/2 ML VIAL ONE (19:18)
[2017-12-25] MEDS ORDERED: KETAMINE HCL INJ 50 MG/ML 10 ML VIAL ONE (19:18)
[2017-12-25] MEDS ORDERED: PROPOFOL IV EMULSION 10 MG/ML 20 ML VIAL ONE (19:18)
[2017-12-25] MEDS ORDERED: ONDANSETRON HCL INJ 2 MG/ML VIAL ONE (19:18)
[2017-12-25] MEDS ORDERED: FENTANYL CITRATE/PF 100MCG/2 ML INJ ONE (19:18)
[2017-12-25] MEDS ORDERED: SUCCINYLCHOLINE 200 MG/10 ML SYR ONE (19:18)
[2017-12-25] MEDS ORDERED: SEVOFLURANE INHAL SOLN 250 ML PEN BTL ONE (19:18)
[2017-12-25 20:00] VITALS: BP 168/89
[2017-12-25 21:59] VITALS: BP 168/89
[2017-12-25] MEDS: GABAPENTIN 100 MG CAP PO SCH (21:59)
[2017-12-26] VITALS: BP 157/80
[2017-12-26] MEDS: ALBUTEROL/IPRATROPIUM 3 ML NEB NEB SCH ×4 (03:05→19:35)
[2017-12-26 04:00] VITALS: BP 142/78
[2017-12-26] MEDS: SODIUM CHLORIDE 0.9% 1000ML 1,000 ML IV SCH ×2 (04:36)
[2017-12-26 05:31] LABS: HEMATOCRIT 37.6 % (34.2-44.1); HEMOGLOBIN 12.1 g/dL (12.0-16.0)
[2017-12-26] MEDS: LEVOTHYROXINE SODIUM 50 MCG TAB PO SCH (06:08)
[2017-12-26 08:16] VITALS: BP 156/82
[2017-12-26] MEDS: SENNOSIDES 8.6 MG TAB PO SCH ×2 (08:40→16:03)
[2017-12-26] MEDS: RISPERIDONE 0.5 MG TAB PO SCH ×3 (08:40→20:49)
[2017-12-26] MEDS: BALSAM PERU/CASTOR OIL 60 GM OINT...G. TP SCH ×2 (08:40→16:03)
[2017-12-26] MEDS: AZITHROMYCIN 250MG/NS 100 ML 100 ML IV SCH (09:00)
[2017-12-26] MEDS: APIXAB 2.5 MG TABLET PO SCH ×2 (09:30→16:03)
--- NOTE | 2017-12-26 10:09 | Operative Report ---
DATE OF PROCEDURE: December 25, 2017 PREOPERATIVE DIAGNOSIS: Impacted left femoral neck fracture. POSTOPERATIVE DIAGNOSIS: Impacted left femoral neck fracture. OPERATION/PROCEDURE PERFORMED: The patient underwent a closed reduction and percutaneous pinning of the left hip fracture. BEATER ENGINEER HELPER: None. ANESTHESIA: General endotracheal intubation anesthesia. IV FLUIDS: Per the anesthesia record. BRIEF DESCRIPTION OF THE PATIENT'S OPERATIVE PROCEDURE: Ms. Duncan was taken to the operating room and placed in the supine position on the fracture table. Following induction of general anesthesia, as well as endotracheal intubation, the patient's right lower extremity was placed in a well-padded lithotomy position, and the left lower extremity was placed in well-padded traction. Fluoroscopic evaluation of the hip joint demonstrated an impacted femoral neck fracture. The left hip was manipulated under anesthesia, and this resulted in improved alignment of the left hip fracture. The patient's thigh and flank was prepped and draped in the standard surgical fashion. An incision was created over the lateral hip. This incision was carried through skin only. Blunt dissection was used deepen the incision to the lateral aspect of the femur. Three pins from the 7.3 cannulated screw system were advanced from lateral to medial through the neck into the head of the femur. The position of those pins were checked using fluoroscopy and found to be appropriate. Measurements were taken and screws were inserted over the pins providing compression across the patient's fracture site. The position of the screws was again assessed using fluoroscopy and found to be appropriate. The wound was copiously irrigated. It was closed in a multilayer fashion. Sterile dressings were applied. The patient was then awakened and taken to the postanesthesia care unit in stable condition. Job#: [id number] GONZÁLEZ
[2017-12-26 11:08] VITALS: BP 142/78
[2017-12-26] MEDS: LORAZEPAM 1 MG TAB PO PRN ×2 (11:15→22:21)
[2017-12-26] MEDS: ACETAMINOPHEN 325 MG TAB PO PRN (11:15)
[2017-12-26] MEDS: CEFTRIAXONE SOD 1 GM/NS 50 ML 50 ML IV SCH (16:03)
[2017-12-26 16:06] VITALS: BP 118/71
[2017-12-26] MEDS: HYDROCODONE/APAP 5MG-325MG TAB PO PRN ×2 (17:30→21:38)
[2017-12-26 20:00] VITALS: BP_SYST 152; BP_SYST 174; BP_DIAS 80; BP_DIAS 83
[2017-12-26] MEDS: GABAPENTIN 100 MG CAP PO SCH (20:49)
[2017-12-27] VITALS: BP 128/62
[2017-12-27] MEDS: ALBUTEROL/IPRATROPIUM 3 ML NEB NEB SCH ×3 (02:30→13:44)
[2017-12-27] MEDS: HYDROCODONE/APAP 5MG-325MG TAB PO PRN ×3 (03:35→15:00)
[2017-12-27 04:00] VITALS: BP 133/69
[2017-12-27] MEDS: LEVOTHYROXINE SODIUM 50 MCG TAB PO SCH (05:12)
[2017-12-27 05:47] LABS: BASOPHILS # (AUTO) 0.1 (0.0-0.1); BASOPHILS % 0.7 % (0.0-1.0); EOSINOPHILS # (AUTO) 0.4 (0.0-0.4); HEMATOCRIT 34.6 % (34.2-44.1); HEMOGLOBIN 11.6 g/dL (12.0-16.0); LYMPHOCYTES # (AUTO) 1.4 (1.0-3.2); LYMPHOCYTES % 20.4 % (18.0-39.1); MEAN CORPUSCULAR HEMOGLOBIN 31.7 pg (28-32); MEAN CORPUSCULAR HGB CONC 33.5 g/dL (31-35); MEAN CORPUSCULAR VOLUME 94.5 fL (81-99); NEUTROPHILS % 57.8 % (38.7-80.0); PLATELET COUNT 277 x10e3/uL (140-360); RED BLOOD COUNT 3.66 x10e6/uL (3.6-5.1); RED CELL DISTRIBUTION WIDTH 12.6 % (11.7-14.4)
[2017-12-27 06:13] LABS: ANION GAP 10.6 mmol/L (8-16); BLOOD UREA NITROGEN 10 mg/dL (7-26); BUN/CREATININE RATIO 13 (6-25); CARBON DIOXIDE 27 mmol/L (22-29); CHLORIDE 105 mmol/L (98-107); CREATININE, SERUM 0.77 mg/dL (0.57-1.11); EST GLOMERULAR FILTRATION RATE > 60 ML/MIN (60-); GLUCOSE 113 mg/dL (74-118); POTASSIUM 3.6 mmol/L (3.5-5.1); SODIUM 139 mmol/L (136-145)
[2017-12-27] MEDS: ACETAMINOPHEN 325 MG TAB PO PRN ×2 (06:15→11:20)
[2017-12-27 08:25] VITALS: BP 151/79
[2017-12-27] MEDS: RISPERIDONE 0.5 MG TAB PO SCH ×2 (08:30→15:31)
[2017-12-27] MEDS: AZITHROMYCIN 250MG/NS 100 ML 100 ML IV SCH (08:30)
[2017-12-27] MEDS: BALSAM PERU/CASTOR OIL 60 GM OINT...G. TP SCH ×2 (08:30→16:13)
[2017-12-27] MEDS: SENNOSIDES 8.6 MG TAB PO SCH ×2 (08:30→16:13)
[2017-12-27] MEDS: APIXAB 2.5 MG TABLET PO SCH ×2 (08:30→16:13)
[2017-12-27] MEDS: LORAZEPAM 1 MG TAB PO PRN (11:20)
[2017-12-27 14:25] VITALS: BP 139/75
[2017-12-27] MEDS: CEFTRIAXONE SOD 1 GM/NS 50 ML 50 ML IV SCH (15:10)
[2017-12-27 16:37] VITALS: BP 167/83
--- NOTE | 2017-12-28 01:04 | Discharge Summary ---
PRIMARY CARE PHYSICIAN: Dr. Kevin Haddad. CONSULTANTS: 1. Dr. Mk Bae. 2. Dr. William Massey FINAL DIAGNOSES: 1. Status post fall with impacted left femoral neck fracture, status post closed reduction and percutaneous pinning of the left hip fracture. 2. Left lower lung atelectasis and bronchiectasis. 3. Baseline dementia and Parkinson disease. 4. Medical chronic debility. 5. Slight anemia. Postop hemoglobin is 11.6, hematocrit 34.6. No gross bleed. SUMMARY: This is an 82-year-old female baseline with medical debility. The patient recently diagnosed with pneumonia. The patient apparently fell at home, living with her family. She suffered left femoral neck fracture. The patient is now status post left hip ORIF. The patient underwent surgery on December 21, [address] Mk Bae and the patient is stable postoperative day #2. The patient has closed reduction and percutaneous pinning of the left hip fractures. The patient is stable. She is comfortable at this time. The patient is stable. She will go to [facility] to continue with her skilled care with PT/OT. Medication reconciliation is done. She will be discharged with Augmentin 875 mg twice a day with food. She will continue with her home medications usually. She will continue with physical therapy as tolerated. Roscoe 5/325 mg q.4h as needed for pain. Prescription for narcotic #30 given to the patient before arrival at the skilled facility. Any further pain management will be up to the attending physician accepting the patient at the skilled facility. She is stable and discharged today. Job#: [id number] GAU cc:Israel Haddad MD
== END 2017-12-27 17:08 | disposition other institution (70) | DRG 480 ==
LOC: ER 11:37 → ERHOLD 15:02 → MED/SURG3 17:39 → MED/SURG 12-25 09:27
PROVIDERS: ADMIT Internal Medicine; ATTEND Internal Medicine
PROC: 0QS934Z Reposition Left Femoral Shaft with Internal Fixation Device, Percutaneous Approach (ICD-10-PCS; principal; 2017-12-26)
DX: S72.012A Unspecified intracapsular fracture of left femur, initial encounter for closed fracture (principal); J18.9 Pneumonia, unspecified organism; F03.91 Unspecified dementia, unspecified severity, with behavioral disturbance; J47.9 Bronchiectasis, uncomplicated; G20 Parkinson's disease; R54 Age-related physical debility; W19.XXXA Unspecified fall, initial encounter; Y93.9 Activity, unspecified; Y92.009 Unspecified place in unspecified non-institutional (private) residence as the place of occurrence of the external cause; E03.9 Hypothyroidism, unspecified; D64.9 Anemia, unspecified
CPT/HCPCS: 36415; 51700; 70450; 71045; 71250; 72192; 76001; 80048; 80053; 81001; 82550; 82553; 84484; 85014; 85018; 85025; 85610; 85730; 87086; 93005; 93306; 94640; 96360; 97139; 99284; C1713; J0456; J0690; J0696; J1100; J2001; J2250; J2270; J2405; J7030; J7040